=== PATIENT | male | born 1995 | race Caucasian/White ===

== ENCOUNTER 2021-09-25 06:55 | Emergency (ER) | payer SELFPAY ==
--- NOTE | ~2021-09-25 | XR_ITS ---
EXAMINATION: XR chest 2V DATE: 09/25/2021 08:07 INDICATION: Chest pain. TECHNIQUE: Frontal and lateral views of the chest were obtained. COMPARISON: None. FINDINGS: The chest demonstrates clear lungs without pneumonia, pleural effusion, or pneumothorax. Th e heart size is normal. IMPRESSION: 1. No acute cardiopulmonary disease. Reviewed, dictated and finalized at location A. RNATIVE ENERGY ENGINEER
[2021-09-25 06:59] VITALS: BP 171/97; PULSE 86; RESP 20; TEMP 36.8; O2SAT 98
--- NOTE | 2021-09-25 07:36 | ECG_ITS ---
Measurements Intervals [place] Rate: 89 P: 62 CT: 141 QRS: 53 QRSD: 87 T: 22 QT: 323 QTc: 393 Interpretive Statements SINUS RHYTHM WITH SINUS ARRHYTHMIA BORDERLINE ST-T WAVE ABNORMALITY- INF/LAT LEADS BASELINE ARTIFACT- I, II, III, AVR, AVL, AVF, V1-V6 BORDERLINE ECG Electronically Signed On 09-25-2021 7:59:33 [employer] by Raúl Chavis D.O.
[2021-09-25 08:01] LABS: Basophils Absolute Auto 0.1 K/mm3 (0.0-0.1); Eosinophils Absolute Auto 0.5 K/mm3 (0-0.3); Eosinophils Percent Auto 7.9 % (0-4.4); Hematocrit 44.9 % (42.0-52.0); Hemoglobin 15.2 g/dL (14.0-18.0); Immature Granulocyte Absolute 0.01 K/mm3 (0.00-0.031); Immature Granulocyte Percent A 0.2 % (0-0.5); Lymphocytes Absolute Auto 2.89 K/mm3 (0.9-3.2); Lymphocytes Percent Auto 46.4 % (18.3-44.2); Mean Corpuscular HGB Conc 33.9 g/dl (32-36); Mean Corpuscular Hemoglobin 30.2 pg (26-34); Mean Corpuscular Volume 89.3 fl (80-100); Mean Platelet Volume 9.8 fl (7.4-10.4); Monocytes Absolute Auto 0.8 K/mm3 (0.1-0.6); Monocytes Percent Auto 12.4 % (2.6-8.5); Neutrophils Percent Auto 32.1 % (45.5-73.1); Platelet Count Result 306 k/mm3 (150-375); Red Blood Count 5.03 M/mm3 (4.6-6.20); Red Cell Distribution Width 12.9 % (11.5-14.5); White Blood Count 6.2 K/mm3 (4.5-10.0)
--- NOTE | 2021-09-25 08:02 | ED.CHESTPAIN ---
HPI - Chest Pain General Chief Complaint: Chest Pain Stated Complaint: CP Time Seen by Provider: 09/25/21 07:04 Source: patient, family and RN notes reviewed Mode of arrival: ambulatory Limitations: no limitations History of Present Illness HPI narrative: This is a 26 year old healthy man who presents for evaluation of midsternal chest pain. He reports he was awake at 5 am this morning, and he noticed sharp pain midsternal when he was trying to sit up. He states it felt like something was pulling. He states this pain has been constant. He has not taken anything for pain. His pain is worse with movement. He reports a chronic cough but it has not been worse today. HE denies nausea, vomiting, fever, chills. His significant other reports patient is intermittent chest pain for 6 months but he does not have a primary care provider. MD complaint: chest pain Related Data Home Medications Medication Instructions Recorded Confirmed No Home Medications 09/25/21 09/25/21 Allergies Allergy/AdvReac Type Severity Reaction Status Date / Time No Known Allergies Allergy Verified 09/25/21 07:34 Review of Systems Review of Systems: All systems reviewed & are unremarkable except as noted in HPI and below PMFSH Past Medical History Medical History (Updated 09/25/21 @ 12:00 by Lacey Shepherd MD) Patient denies medical problems Surgical History Surgical History (Updated 09/25/21 @ 08:06 by Lacey Shepherd MD) No pertinent past surgical history Social History Social History (Updated 09/25/21 @ 08:06 by Lacey Shepherd MD) Smoking status: Never smoker Exam Const: General: no acute distress and alert Orientation/consciousness: patient oriented x3 HENMT: Head: normocephalic and atraumatic Eyes: EOM: EOMs intact bilaterally Chest: Chest palpation & inspection: tenderness sternum Resp: Effort & Inspection: normal respiratory effort, no retractions, not tachypneic and no use of accessory muscles Auscultation: clear to auscultation bilaterally Cardio: Rate: regular rate Rhythm: regular rhythm Heart sounds: no murmurs GI: GI Palp: Yes Soft to palpation, No Tenderness to palpation present (GI) and No Guarding due to palpation present (GI) Auscultation: normal bowel sounds Skin: General skin exam: normal color Rashes: no rashes Neuro: General: patient oriented x3, moves all extremities and CN's II-XI intact bilaterally Extrem: General: normal to inspection Psych: Mental Status: mental status grossly normal Affect: normal affect Course Reevaluation(s) Reevaluation #1: Patient has been resting comfortable in ER without any complaints. He states he has not had any pain in a while. Labs are unremarkable. I suspect his pain is due to chest wall pain. Date: 09/25/21 Time: 11:58 Vital Signs Vital signs: Vital Signs Temperature 98.2 F 09/25/21 06:59 Pulse Rate 86 09/25/21 06:59 Respiratory Rate 20 09/25/21 06:59 Blood Pressure 171/97 H 09/25/21 06:59 Pulse Oximetry 98 09/25/21 06:59 Temperature 98.2 F 09/25/21 06:59 Pulse Rate 65 09/25/21 12:09 Respiratory Rate 16 09/25/21 12:09 Blood Pressure 142/87 H 09/25/21 12:09 Pulse Oximetry 100 09/25/21 12:09 MDM - Chest Pain Lab Data Attestation: I reviewed the patient's lab results. Result diagrams: 09/25/21 07:54 09/25/21 07:54 Labs: Lab Results 09/25/21 09/25/21 09/25/21 Range/Units 07:54 07:54 07:54 WBC 6.2 (4.5-10.0) K/mm3 RBC 5.03 (4.6-6.20) M/mm3 Hgb 15.2 (14.0-18.0) g/dL Hct 44.9 (42.0-52.0) % MCV 89.3 (80-100) fl MCH 30.2 (26-34) pg MCHC 33.9 (32-36) g/dl RDW 12.9 (11.5-14.5) % Plt Count 306 (150-375) k/mm3 MPV 9.8 (7.4-10.4) fl Immature Gran % (Auto) 0.2 (0-0.5) % Neut % (Auto) 32.1 L (45.5-73.1) % Lymph % (Auto) 46.4 H (18.3-44.2) % [place] % (Auto) 12.4 H (2.6-8.5) % Eos % (Auto) 7.9
[2021-09-25] MEDS: KETOROLAC 30 MG/ML VIAL (*BKC) IV PUSH (08:08)
[2021-09-25 08:12] LABS: Partial Thromboplastin Time 28.3 SECONDS (22.3-36.8); Prothrombin Time 13.3 Seconds (11.1-14.7)
[2021-09-25 08:16] LABS: Anion Gap 10 mmol/L (8-16); Blood Urea Nitrogen 10 mg/dL (9-20); Calcium 9.9 mg/dL (8.4-10.2); Carbon Dioxide 30 mmol/L (22-30); Chloride 104 mmol/L (98-107); D Dimer 0.27 ug/mL (<0.48); Estimated CRCL calculation 125 ml/min; Estimated Glomerular Filt Rate > 60; Glucose 112 mg/dL (65-110); Lipase 51 U/L (23-300); Potassium 3.6 mmol/L (3.4-5.0); Sodium 144 mmol/L (137-145)
[2021-09-25 08:28] LABS: Troponin I < 0.012 ng/mL (0.000-0.034)
[2021-09-25 08:53] VITALS: BP 130/79; PULSE 46; RESP 18; O2SAT 100
[2021-09-25 09:23] VITALS: PULSE 55
[2021-09-25 09:57] VITALS: BP 126/76; PULSE 60; RESP 18; O2SAT 98
[2021-09-25 10:57] VITALS: BP 120/63; PULSE 48; RESP 14; O2SAT 99
[2021-09-25 11:32] LABS: Troponin I < 0.012 ng/mL (0.000-0.034)
[2021-09-25 12:09] VITALS: BP 142/87; PULSE 65; RESP 16; O2SAT 100
== END 2021-09-25 12:10 | disposition home or self-care (01) ==
PROVIDERS: Emergency Provider General Practice
DX: M94.0 Chondrocostal junction syndrome [Tietze] (principal)
CPT/HCPCS: 36415; 71046; 80048; 83690; 84484; 85025; 85380; 85610; 85730; 93005; 96374; 99284; J1885

== ENCOUNTER 2022-02-17 03:49 | Emergency (ER) | payer SELFPAY ==
[2022-02-17] VITALS (10 sets, daily range): BP systolic 100–156; BP diastolic 61–73; PULSE 67–89; RESP 17–26; TEMP 37.1; O2SAT 95–100
--- NOTE | ~2022-02-17 | XR_ITS ---
EXAMINATION: XR chest 2V DATE: 02/17/2022 04:31 INDICATION: Chest pain TECHNIQUE: PA and lateral views of the chest are obtained. COMPARISON: 09/25/2021 FINDINGS: The lungs are free of acute opacities. There is no pleural effusion or pneumothorax. The ca rdiomediastinal silhouette is normal. The visualized bones and soft tissues are unremarkable. IMPRESSION: 1. No acute cardiopulmonary abnormality. Reviewed, dictated and finalized at location A.
--- NOTE | 2022-02-17 04:21 | ECG_ITS ---
Measurements Intervals [place] Rate: 92 P: 35 UT: 145 QRS: 32 QRSD: 102 T: 20 QT: 353 QTc: 438 Interpretive Statements SINUS RHYTHM BASELINE ARTIFACT NORMAL ECG COMPARED TO ECG 09/25/2021 07:04:01 ST CHANGES LESS PROMINENT Electronically Signed On 02-17-2022 16:49:34 CDT by Chris Daly M.D.
--- NOTE | 2022-02-17 04:21 | ED.GENADULT ---
HPI - General Adult General Chief complaint: Altered Mental Status Stated complaint: PD CUSTODY-AMS, NARCAN 4MG Time Seen by Provider: 02/17/22 04:17 History of Present Illness HPI narrative: Patient is a 26-year-old male who presents ER with syncope. Apparently was at the police station and had a syncopal episode. Is unclear right now other he was taken to the police station because he overdosed or if they thought he overdosed at the police station. He was given 4 mg Narcan. Patient reports use of alcohol tonight. He is unsure why he has a ticket saying his car has been impounded. Denies any trauma. No pain. He is alert and oriented x3. Related Data Home Medications Medication Instructions Recorded Confirmed No Home Medications 09/25/21 09/25/21 Allergies Allergy/AdvReac Type Severity Reaction Status Date / Time No Known Allergies Allergy Verified 02/17/22 03:55 Review of Systems Review of Systems: All systems reviewed & are unremarkable except as noted in HPI and below Constitutional: Constitutional: Denies chills, Denies fever(s) and Denies weakness ENT: Denies nasal congestion and Denies sore throat Cardiovascular: Cardiovascular: Reports chest pain (nonspecific), Denies rapid heart rate and Denies radiating jaw, neck or arm pain Respiratory: Respiratory: Denies cough, Denies dyspnea and Denies wheezing Gastrointestinal: Gastrointestinal: Denies abdominal pain, Denies nausea and Denies vomiting PMFSH Past Medical History Medical History (Updated 02/17/22 @ 07:29 by Cliff Obregon MD) Patient denies medical problems Surgical History Surgical History (Updated 09/25/21 @ 08:06 by Lacey Shepherd MD) No pertinent past surgical history Social History Social History (Updated 09/25/21 @ 08:06 by Lacey Shepherd MD) Smoking status: Never smoker Exam Narrative: GENERAL: Intoxicated-appearing, well-nourished, and in no acute distress. HEAD: Normocephalic, atraumatic. EYES: PERRLA and EOMI. ENT: Mucous membranes moist. CHEST: Clear to auscultation. No respiratory distress. HEART: Regular rate and rhythm. Normal peripheral pulses. ABDOMEN: Soft, nontender, nondistended. EXTREMITIES: Normal range of motion. No edema. SKIN: Warm, dry, no rash. NEURO: Alert and oriented x3. PSYCH: Normal mood and affect. Course Course Emergency Course: Patient up and ambulatory with steady gait and calling for a ride home. Vital Signs Vital signs: Vital Signs Temperature 98.8 F 02/17/22 03:47 Pulse Rate 79 02/17/22 03:47 Respiratory Rate 20 02/17/22 03:47 Blood Pressure 156/73 H 02/17/22 03:47 Pulse Oximetry 98 02/17/22 03:47 Temperature 98.8 F 02/17/22 03:47 Pulse Rate 77 02/17/22 04:45 Respiratory Rate 21 H 02/17/22 04:45 Blood Pressure 124/66 02/17/22 04:16 Pulse Oximetry 98 02/17/22 04:45 Medical Decision Making Vital Signs Vital Signs: Vital Signs Temperature 98.8 F 02/17/22 03:47 Pulse Rate 79 02/17/22 03:47 Respiratory Rate 20 02/17/22 03:47 Blood Pressure 156/73 H 02/17/22 03:47 Pulse Oximetry 98 02/17/22 03:47 Temperature 98.8 F 02/17/22 03:47 Pulse Rate 77 02/17/22 04:45 Respiratory Rate 21 H 02/17/22 04:45 Blood Pressure 124/66 02/17/22 04:16 Pulse Oximetry 98 02/17/22 04:45 Lab Data Result diagrams: 02/17/22 04:43 02/17/22 04:44 Labs: Lab Results 02/17/22 02/17/22 02/17/22 Range/Units 04:43 04:43 04:43 WBC 5.6 (4.5-10.0) K/mm3 RBC 4.88 (4.6-6.20) M/mm3 Hgb 14.7 (14.0-18.0) g/dL Hct 45.5 (42.0-52.0) % MCV 93.2 (80-100) fl MCH 30.1 (26-34) pg MCHC 32.3 (32-36) g/dl RDW 13.0 (11.5-14.5) % Plt Count 315 (150-375) k/mm3 MPV 9.8 (7.4-10.4) fl Immature Gran % (Auto) 0.4 (0-0.5) % Neut % (Auto) 46.2 (45.5-73.1) % Lymph % (Auto) 42.9 (18.3-44.2) % [place] % (Auto) 7.8 (2.6-8.5) % Eos % (Auto) 1.8
[2022-02-17 04:51] LABS: Basophils Absolute Auto 0.1 K/mm3 (0.0-0.1); Basophils Percent Auto 0.9 % (0.2-1.2); Eosinophils Absolute Auto 0.1 K/mm3 (0-0.3); Eosinophils Percent Auto 1.8 % (0-4.4); Hematocrit 45.5 % (42.0-52.0); Hemoglobin 14.7 g/dL (14.0-18.0); Immature Granulocyte Absolute 0.02 K/mm3 (0.00-0.031); Immature Granulocyte Percent A 0.4 % (0-0.5); Lymphocytes Absolute Auto 2.41 K/mm3 (0.9-3.2); Lymphocytes Percent Auto 42.9 % (18.3-44.2); Mean Corpuscular HGB Conc 32.3 g/dl (32-36); Mean Corpuscular Hemoglobin 30.1 pg (26-34); Mean Corpuscular Volume 93.2 fl (80-100); Mean Platelet Volume 9.8 fl (7.4-10.4); Monocytes Absolute Auto 0.4 K/mm3 (0.1-0.6); Monocytes Percent Auto 7.8 % (2.6-8.5); Neutrophils Absolute Auto 2.6 K/mm3 (1.3-6.7); Neutrophils Percent Auto 46.2 % (45.5-73.1); Platelet Count Result 315 k/mm3 (150-375); Red Blood Count 4.88 M/mm3 (4.6-6.20); White Blood Count 5.6 K/mm3 (4.5-10.0)
[2022-02-17 04:54] LABS: Add Urine Microscopic? NO; Appearance Urine Clear (Clear); Bilirubin Urine Negative (Negative); Blood Urine Negative (Negative); Color Urine Straw (Yellow); Glucose Urine UA Negative (Negative); Ketones Urine Negative (Negative); Leukocyte Esterase Ur Negative LEU/UL (Negative); Nitrate Urine Negative (Negative); Protein Urine Negative (Negative); Urobilinogen Urine Negative mg/dL (<2.0)
[2022-02-17 04:57] LABS: Specific Grav Ur 1.004 (1.001-1.035)
[2022-02-17 05:01] LABS: Anion Gap 10 mmol/L (8-16); Blood Urea Nitrogen 4 mg/dL (9-20); Calcium 8.6 mg/dL (8.4-10.2); Carbon Dioxide 24 mmol/L (22-30); Chloride 110 mmol/L (98-107); Estimated CRCL calculation 109 ml/min; Estimated Glomerular Filt Rate > 60; Glucose 118 mg/dL (65-110); Sodium 144 mmol/L (137-145)
[2022-02-17 05:03] LABS: Ethanol 205 mg/dL (<10)
[2022-02-17 05:06] LABS: Prothrombin Time 13.1 Seconds (11.1-14.7)
[2022-02-17 05:07] LABS: Partial Thromboplastin Time 27.9 SECONDS (22.3-36.8)
[2022-02-17 05:09] LABS: Amphetamine Screen Urine Negative (Negative); Barbiturate Screen Urine Negative (Negative); Benzodiazepines Screen Urine Negative (Negative); Cannabinoid Screen Urine Negative (Negative); Cocaine Screen Urine Negative (Negative); Methadone Screen Urine Negative (Negative); Opiate Screen Urine Negative (Negative); Phencyclidine Screen Urine Negative (Negative)
[2022-02-17 05:14] LABS: Troponin I < 0.012 ng/mL (0.000-0.034)
== END 2022-02-17 08:01 | disposition home or self-care (01) ==
PROVIDERS: Emergency Provider Emergency Medicine
DX: F10.129 Alcohol abuse with intoxication, unspecified (principal); Y90.7 Blood alcohol level of 200-239 mg/100 ml
CPT/HCPCS: 36415; 71046; 80048; 80307; 81003; 84484; 85025; 85610; 85730; 93005; 99284